=== PATIENT | male | born 1940 | race Caucasian/White ===

== ENCOUNTER → 2017-12-29 | Outpatient (CLI) | payer OTHER ==
--- NOTE | 2017-12-29 16:02 | RADRPT ---
EXAM DATE: 12/29/2017 2:54 PM EDT AGE/SEX: 77 years / Male INDICATIONS: Tremors. CLINICAL DATA: This is the patient's initial encounter. Patient reports that signs and symptoms have been present for 1 day and indicates a pain score of 0/10. MEDICAL/SURGICAL HISTORY: None. Total knee replacement, left. COMPARISON: No prior exams available for comparison. DOSE: 5.1 mCi Ioflupane Iodine-123 in 2.5ml total volume. MEDICATION(S): 130 mg Potasium Iodine PO one hour prior to injection. IMAGING: Spect/CT imaging with fusion was performed. SPECT IMAGIN.5 Hrs. RADIATION DOSE: 30.27 CTDIvol(mGy) TECHNIQUE: SPECT imaging of the brain was performed in sagittal, axial and coronal planes. Attenuati on correction was performed with computed tomography and both the attenuation correction and non-atte nuation corrected data sets were reviewed. FINDINGS: There is diminished abnormal uptake within the striatum inhomogeneously bilaterally characteristics o f Parkinson's disease. CONCLUSION: 1. Abnormal uptake within the striatum characteristic of Parkinson's disease. Electronically signed by: Bonifacio Moya MD 12/29/2017 4:01 PM EDT
== END ==
LOC: HRAD 08:24
PROVIDERS: ATTEND Specialist
DX: R25.1 Tremor, unspecified (principal)
CPT/HCPCS: 78607; A9584